=== PATIENT | male | born 2000 | race Caucasian/White ===

== ENCOUNTER 2023-07-07 20:37 | Emergency (ER) | payer BC ==
[2023-07-07] MEDS ORDERED: Lidocaine 1% PF 5 ML VIAL ONE (21:08)
[2023-07-07] MEDS ORDERED: Triple Antibiotic Oint 1 GM Packet ONE (22:14)
[2023-07-07] MEDS ORDERED: Boostrix 0.5 ML (Tdap) VIAL (>/=7 yrs of age) ONE (22:18)
== END 2023-07-07 22:30 | disposition home or self-care (01) ==
LOC: CSHERS 20:37
DX: S61.212A Laceration without foreign body of right middle finger without damage to nail, initial encounter (principal); F17.210 Nicotine dependence, cigarettes, uncomplicated; F17.290 Nicotine dependence, other tobacco product, uncomplicated; Z23 Encounter for immunization; W23.0XXA Caught, crushed, jammed, or pinched between moving objects, initial encounter
CPT/HCPCS: 12001; 90471; 90715